=== PATIENT | male | born 1990 | race Two or more races ===

== ENCOUNTER 2020-11-10 03:46 | Emergency (ER) | payer MEDICAID, OTHER ==
[~2020-11-10] VITALS: Ht 172.7 cm; Wt 61.2 kg
[2020-11-10] MEDS ORDERED: KETOROLAC TROMETH 30 MG/ML 1ML VIAL IV ONE (05:00)
[2020-11-10] MEDS ORDERED: fentaNYL CITRATE 100 MCG/2 ML VL IV ONE (05:00)
[2020-11-10] MEDS ORDERED: IOHEXOL 350 MG/ML 100ML IJ ONE (05:13)
[2020-11-10] MEDS ORDERED: MORPHINE SULF INJ 2 MG/ML SYRINGE 1ML IV ONE (08:00)
[2020-11-10 08:30] VITALS: BP 108/64
== END 2020-11-10 09:03 | disposition home or self-care (01) ==
LOC: ER 03:46 → EDBD 03:46 → ER 09:03
DX: S32.10XA Unspecified fracture of sacrum, initial encounter for closed fracture (principal); S73.101A Unspecified sprain of right hip, initial encounter; S33.5XXA Sprain of ligaments of lumbar spine, initial encounter; S30.811A Abrasion of abdominal wall, initial encounter; M54.2 Cervicalgia; R51.9 Headache, unspecified; Z88.0 Allergy status to penicillin; V43.52XA Car driver injured in collision with other type car in traffic accident, initial encounter; Y93.89 Activity, other specified; Y92.488 Other paved roadways as the place of occurrence of the external cause; Y99.8 Other external cause status
CPT/HCPCS: 70450; 71260; 72125; 72131; 73590; 73600; 74177; 96374; 96375; 99285; J1885; J2270; J3010; Q9967